=== PATIENT | female | born 1970 | race Caucasian/White ===

== ENCOUNTER 2020-04-21 15:59 | Emergency (ER) | payer OTHER ==
[2020-04-21] MEDS ORDERED: ENDOCET 5-3251 EACH PO (16:41)
== END 2020-04-21 17:09 | disposition home or self-care (01) ==
LOC: ER1 15:59
DX: S52.532A Colles' fracture of left radius, initial encounter for closed fracture (principal); W19.XXXA Unspecified fall, initial encounter; Y92.009 Unspecified place in unspecified non-institutional (private) residence as the place of occurrence of the external cause
CPT/HCPCS: 29125; 99283